=== PATIENT | male | born 1965 | race Caucasian/White ===

== ENCOUNTER 2017-01-09 13:16 | Observation (INO) | payer OTHER ==
[~2017-01-09] VITALS: Ht 182.9 cm; Wt 150.0 kg
[~2017-01-09 13:16] MED LIST: CITA20 PO; FISH1000 PO; GEMF600T PO; HCTZ50TA OR; LURA20TA PO; METO50CR OR; MVI PO; OMEP20TA OR; SYNT25TA PO; [UNRECOGNIZED DRUG - CODE] OR; [UNRECOGNIZED DRUG - CODE] SL
[2017-01-09 13:19] VITALS: BP 183/102; PULSE 83; RESP 18; TEMP 98.2; O2SAT 96
[2017-01-09 13:25] VITALS: O2SAT 95
[2017-01-09 13:29] VITALS: BP 146/96; PULSE 79
[2017-01-09] MEDS ORDERED: SODIUM CHLORIDE 0.9% FLUSH 5 ML FLUSH IVF PRN ×2 (13:30→16:00)
[2017-01-09] MEDS ORDERED: ASPIRIN 81 MG CHEW TAB PO ONE (13:30)
--- NOTE | 2017-01-09 13:34 | PD ---
HPI Chief Complaint: Chest Pain Time Seen by Provider: 13:24 Travel History International Travel<30 days: No Contact w/Intl Traveler<30days: No Traveled to known affect area: No History of Present Illness HPI This is a 51-year-old gentleman with history of hypertriglyceridemia, who presents with complaints of 4 episodes of left sided chest tightness and pain. The patient states that he was getting ready to go out to lunch with his daughter when he started experiencing a squeezing tight sensation in his left side of his chest. He reports no previous history of such pain. He states that it was so severe that he called his is in the medical field told him that he needs to be seen at the hospital as this may be cardiac related. He denies any nausea or diaphoresis with the pain. He reports it as a 7-8 on the pain scale. There was no radiation to his jaw or shoulder. There is no shortness of breath associated with the discomfort. The patient has a history of occasional pipe use. He denies any hypertension or diabetes history. There are no other complaints time my examination. PFSH Past Medical History Blood Disorders: No Depression: Yes Cancer: No Cardiovascular Problems: Yes High Cholesterol: Yes Diminished Hearing: No Endocrine: Yes Gastrointestinal Disorders: No GERD: Yes Genitourinary: No Hypertension: Yes Immune Disorder: No Implanted Vascular Access Dvce: Yes Musculoskeletal: Yes (L-LEG RECONSTRUCTED) Neurologic: No Psychiatric: No Respiratory: No Thyroid Disease: Yes (HYPO) Past Surgical History Body Medical Devices: L-LEG HARDWARE Other Surgery: Yes (HERNIA PATCH) Social History Alcohol Use: No Tobacco Use: Yes Substance Use: No Allergies-Medications (Allergen,Severity, Reaction): Coded Allergies: No Known Allergies (Verified , 09/27/15) Reported Meds & Prescriptions Reported Meds & Active Scripts Active Reported Metoprolol Tartrate 25 Mg Tab 25 Mg PO BID Fish Oil 1000 mg ([place]-3 Fatty Acids) 1 Cap Cap 1,000 Mg PO DAILY Aspirin Adult Low Strength (Aspirin) 81 Mg Tabdr 81 Mg PO DAILY Multi Vitamin (Multiple Vitamin) 1 Tab Tab 1 Tab PO DAILY Triamterene-Hydrochlorothiazide 37.5-25 Mg Tab 1 Tab PO DAILY Gemfibrozil 600 Mg Tab 600 Mg PO DAILY Take 30 minutes prior to breakfast and dinner. Synthroid (Levothyroxine Sodium) 75 Mcg Tab 75 Mcg PO DAILY Omeprazole 20 Mg Tab 20 Mg PO DAILY Review of Systems Except as stated in HPI: all other systems reviewed are Neg General / Constitutional: No: Fever, Chills HENT: No: Headaches, Lightheadedness Cardiovascular: Positive: Chest Pain or Discomfort, No: Palpitations, Irregular Rhythm Respiratory: No: Cough, Shortness of Breath Gastrointestinal: No: Nausea, Vomiting Musculoskeletal: No: Weakness, Pain Neurologic: No: Weakness, Dizziness, Headache Physical Exam Narrative GENERAL: Well-nourished, well-developed patient. SKIN: Warm and dry. HEAD: Normocephalic/atraumatic. EYES: No scleral icterus. No injection or drainage. NECK: Supple, trachea midline. CARDIOVASCULAR: Regular rate and rhythm without murmurs, gallops, or rubs. RESPIRATORY: Breath sounds equal bilaterally. No accessory muscle use. GASTROINTESTINAL: Abdomen soft, obese, non-tender, nondistended. MUSCULOSKELETAL: No cyanosis, or edema. NEUROLOGICAL: Awake and alert. Cranial nerves II through XII intact. Motor grossly within normal limits. Five out of 5 muscle strength in all muscle groups. Normal speech. Data Data Last Documented VS Vital Signs Date Time Temp Pulse Resp B/P Pulse Ox O2 Delivery O2 Flow Rate FiO2 01/09/17 13:29 79 146/96 01/09/17 13:25 95 Room Air 01/09/17 13:25 17 01/09/17 13:19 98.2 Orders Electrocardiogram (01/09/17 13:24) Basic Metabolic Panel (Bmp) (01/09/17 13:24) Ckmb (Isoenzyme) Profile (01/09/17 13:24) Complete Blood Count With Diff (01/09/17 13:24) Magnesium (Mg) (01/09/17 13:24) Prothrombin Time / Inr (Pt) (01/09/17 13:24) Act Partial Throm Time (Ptt) (01/09/17 13:24) Troponin I (01/09/17 13:24) Chest, Single Ap (01/09/17 13:24) Ecg Monitoring (01/09/17 13:24) Bilateral Bp Monitoring (01/09/17 13:24) Iv Access Insert/Monitor (01/09/17 13:24) Oximetry (01/09/17 13:24) Oxygen Administration (01/09/17 13:24) Aspirin Chew (Aspirin Chew) (01/09/17 13:30) Sodium Chloride 0.9% Flush (Ns Flush) (01/09/17 13:30) CKMB (01/09/17 13:30) CKMB% (01/09/17 13:30) Place In Observation (01/09/17 15:54) Activity Bed Rest With Brp (01/09/17 15:54) Vital Signs (Adult) Q4H (01/09/17 15:54) Cardiac Rhythm .As Directed (01/09/17 15:54) ^ Notify Dr: Other .PRN (01/09/17:54) ^ Notify Dr. Parameters (01/09/17:54) Resp Oxygen Rich C Titrat 1-4 L (01/09/17:54) Resp Pulse Oximetry (01/09/17 15:54) Diet Heart Healthy (01/09/17 Dinner) ^ Saline Lock (01/09/17 15:54) Ckmb (Isoenzyme) Profile (01/09/17 16:30) Ckmb (Isoenzyme) Profile (01/09/17 19:30) Troponin I (01/09/17 16:30) Troponin I (01/09/17 19:30) Electrocardiogram (01/09/17 16:30) Electrocardiogram (01/09/17 19:30) ^ Obtain (01/09/17 15:54) Sodium Chloride 0.9% Flush (Ns Flush) (01/09/17 16:00) Sodium Chloride 0.9% Flush (Ns Flush) (01/09/17 21:00) Acetaminophen (Tylenol) (01/09/17 16:00) Acetamin-Hydrocod 325-7.5 Mg ([place] 7.5 (01/09/17 16:00) Ondansetron Inj (Zofran Inj) (01/09/17 16:00) Pantoprazole (Protonix) (01/09/17 16:00) Aspirin (Aspirin) (01/10/17 09:00) Alprazolam (Xanax) (01/09/17 16:00) Vte Prophylaxis Not Indicated (01/09/17 15:54) Clonidine (Catapres) (01/09/17 16:00) Npo After Midnight W/ Po Meds (01/10/17 Breakfast) Myocardial Perf Pharm Sp W/Ef (01/09/17 ) Gemfibrozil (Lopid) (01/10/17 09:00) Levothyroxine (Synthroid) (01/10/17 09:00) Metoprolol Tartrate (Lopressor) (01/09/17 21:00) Multivitamin (Theragran) (01/10/17 09:00) Pantoprazole (Protonix) (01/10/17 09:00) Triamterene-Hctz 37.5-25 Mg (Maxzide 37. (01/10/17 09:00) (Nf) [place]-3 Fatty Acids (Fish Oil 1000 (01/10/17 09:00) Admit Order (Ed Use Only) (01/09/17 16:11) Labs Laboratory Tests Test 01/09/17 13:30 White Blood Count 8.4 TH/MM3 Red Blood Count 5.60 MIL/MM3 Hemoglobin 16.6 GM/DL Hematocrit 47.7 % Mean Corpuscular Volume 85.2 FL Mean Corpuscular Hemoglobin 29.7 PG Mean Corpuscular Hemoglobin 34.9 % Concent Red Cell Distribution Width 14.0 % Platelet Count 305 TH/MM3 Mean Platelet Volume 7.4 FL Neutrophils (%) (Auto) 45.1 % Lymphocytes (%) (Auto) 43.9 % Monocytes (%) (Auto) 7.5 % Eosinophils (%) (Auto) 2.9 % Basophils (%) (Auto) 0.6 % Neutrophils # (Auto) 3.8 TH/MM3 Lymphocytes # (Auto) 3.7 TH/MM3 Monocytes # (Auto) 0.6 TH/MM3 Eosinophils # (Auto) 0.2 TH/MM3 Basophils # (Auto) 0.1 TH/MM3 CBC Comment DIFF FINAL Differential Comment Prothrombin Time 10.5 SEC Prothromb Time International 1.0 RATIO Ratio Activated Partial 27.1 SEC Thromboplast Time Sodium Level 136 MEQ/L Potassium Level 3.9 MEQ/L Chloride Level 99 MEQ/L Carbon Dioxide Level 27.2 MEQ/L Anion Gap 10 MEQ/L Blood Urea Nitrogen 8 MG/DL Creatinine 1.14 MG/DL Estimat Glomerular Filtration 67 ML/MIN Rate Random Glucose 112 MG/DL Calcium Level 9.6 MG/DL Magnesium Level 2.4 MG/DL Total Creatine Kinase 123 U/L Creatine Kinase MB 0.7 NG/ML Troponin I LESS THAN 0.02 NG/ML MDM Medical Decision Making Medical Screen Exam Complete: Yes Emergency Medical Condition: Yes Differential Diagnosis ACS versus pneumonia versus musculoskeletal pain Narrative Course This is a 51-year-old male with a history of hypertriglyceridemia, occasional pipe tobacco use, who presents today with complaints of 4 episodes of left sided chest pain and tightness. The patient is currently pain-free. He states he was concerned because he's never had pain like this before. He has no history of previous heart disease. Diagnosis Primary Impression: Chest pain, atypical Additional Impressions: Tobacco abuse Hypertriglyceridemia Andrew Cowan MD Jan 09, 2017 13:34
[2017-01-09 13:43] LABS: AUTOMATED NEUTROPHIL # 3.8 TH/MM3 (1.8-7.7); BASOPHIL # 0.1 TH/MM3 (0-0.2); BASOPHIL % 0.6 % (0.0-2.0); EOSINOPHIL # 0.2 TH/MM3 (0-0.4); EOSINOPHIL % 2.9 % (0.0-4.0); HEMATOCRIT 47.7 % (39.0-51.0); HEMO FLAGS DIFF FINAL; LYMPH % 43.9 % (9.0-44.0); LYMPHOCYTE # 3.7 TH/MM3 (1.0-4.8); MEAN CELL VOLUME 85.2 FL (80.0-100.0); MEAN CORPUSCULAR HEMOGLOBIN 29.7 PG (27.0-34.0); MEAN CORPUSCULAR HGB CONC 34.9 % (32.0-36.0); MONO % 7.5 % (0.0-8.0); NEUT % 45.1 % (16.0-70.0); PLATELET COUNT 305 TH/MM3 (150-450); WHITE BLOOD COUNT 8.4 TH/MM3 (4.0-11.0)
[2017-01-09 13:53] LABS: APTT (PATIENT) 27.1 SEC (24.3-30.1); PROTHROMBIN TIME - PATIENT 10.5 SEC (9.8-11.6)
[2017-01-09 14:06] LABS: ANION GAP 10 MEQ/L (5-15); BICARBONATE 27.2 MEQ/L (21.0-32.0); CHLORIDE 99 MEQ/L (98-107); CREATINE KINASE 123 U/L (39-308); GLOMERULAR FILTRATION RATE 67 ML/MIN (>89); MAGNESIUM 2.4 MG/DL (1.5-2.5); SODIUM (NA) 136 MEQ/L (136-145)
[2017-01-09 14:07] LABS: BLOOD UREA NITROGEN 8 MG/DL (7-18)
[2017-01-09 14:08] LABS: POTASSIUM 3.9 MEQ/L (3.5-5.1)
--- NOTE | 2017-01-09 14:12 | RADRPT ---
EXAM DATE/TIME: 01/09/2017 13:39 [facility] COMPARISON: CHEST SINGLE AP, September 27, 2015, 0:51. INDICATIONS : Patient states he had chest pain earlier this afternoon. MEDICAL HISTORY : Cardiovascular disease. Hypertension. Gastroesophageal reflux SURGICAL HISTORY : Left leg reconstruction Plate on nose ENCOUNTER: Initial ACUITY: 1 day PAIN SCORE: 0/10 LOCATION: chest FINDINGS: A single view of the chest demonstrates the lungs to be symmetrically aerated without evidence of mas s, infiltrate or effusion. The cardiomediastinal contours are unremarkable. Osseous structures are intact. CONCLUSION: No evidence of acute cardiopulmonary disease. Gary Perera MD on January 09, 2017 at 14:10 Board Certified Radiologist. This report was verified electronically.
[2017-01-09 14:20] LABS: CKMB 0.7 NG/ML (0.5-3.6)
[2017-01-09] MEDS ORDERED: ASPI1TAB91 PO (14:32)
[2017-01-09] MEDS ORDERED: GEMF600T PO (14:32)
[2017-01-09] MEDS ORDERED: OMEG100037 PO (14:32)
[2017-01-09] MEDS ORDERED: LEVO.075 PO (14:32)
[2017-01-09] MEDS ORDERED: OMEP20TA PO (14:32)
[2017-01-09] MEDS ORDERED: MULT-135 PO (14:32)
[2017-01-09] MEDS ORDERED: TRIA37.5 PO (14:32)
[2017-01-09] MEDS ORDERED: METO50TA PO (14:32)
[2017-01-09] MEDS ORDERED: METO25TA3 PO (14:34)
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
[2017-01-09] MEDS ORDERED: PANTOPRAZOLE SOD 40 MG DELAYED RELEASE TAB PO SCH (16:00)
[2017-01-09] MEDS ORDERED: ACETAMINOPHEN 500 MG CPLT PO PRN (16:00)
[2017-01-09] MEDS ORDERED: ACETAMINOPHEN/HYDROcodone 325 MG/7.5 MG TAB PO PRN (16:00)
[2017-01-09] MEDS ORDERED: cloNIDine HCL 0.1 MG TAB PO PRN (16:00)
[2017-01-09] MEDS ORDERED: ONDANSETRON HCL 4 MG/2 ML VIAL IV PRN (16:00)
[2017-01-09] MEDS ORDERED: ALPRAZolam 0.25 MG TAB PO PRN (16:00)
[2017-01-09 16:10] VITALS: BP 133/70; PULSE 80; RESP 18
--- NOTE | 2017-01-09 16:11 | HHI.DCPOC ---
Discharge Care Plan Diagnosis: (1) Chest pain, atypical (2) Hypertension (3) Hypertriglyceridemia (4) Hypothyroidism (5) Tobacco abuse (6) Obesity Goals to Promote Your Health * To prevent worsening of your condition and complications * To maintain your health at the optimal level Directions to Meet Your Goals Take your medications as prescribed Follow your dietary instruction Follow activity as directed Keep your appointments as scheduled Take your immunizations and boosters as scheduled If your symptoms worsen call your PCP, if no PCP go to Urgent Care Center or Emergency Room Smoking is Dangerous to Your Health. Avoid second hand smoke Call the 24-hour hour crisis hotline for domestic abuse at Corey Redmond Jan 09, 2017 16:11
[2017-01-09 17:56] LABS: CREATINE KINASE 108 U/L (39-308)
[2017-01-09 18:09] LABS: CKMB LESS THAN 0.5 NG/ML (0.5-3.6)
[2017-01-09 18:20] VITALS: BP 124/76; PULSE 80; RESP 18
[2017-01-09 20:34] VITALS: BP 122/80; PULSE 84; RESP 18
[2017-01-09 21:32] LABS: CREATINE KINASE 119 U/L (39-308)
[2017-01-09 21:44] LABS: CKMB LESS THAN 0.5 NG/ML (0.5-3.6)
[2017-01-09] MEDS: SODIUM CHLORIDE 0.9% FLUSH 5 ML FLUSH IVF SCH (22:33)
[2017-01-09] MEDS: METOPROLOL TARTRATE 25 MG TAB PO SCH (22:35)
[2017-01-10 02:00] VITALS: BP 121/76; PULSE 85; RESP 18; O2SAT 94
[2017-01-10 05:41] VITALS: BP 113/73; PULSE 82; RESP 20; O2SAT 96
[2017-01-10] MEDS ORDERED: LEVOTHYROXINE SODIUM 75 MCG TAB PO SCH (06:00)
[2017-01-10 07:30] VITALS: BP 116/79; PULSE 78; RESP 16; RESP 17; TEMP 98; O2SAT 99
[2017-01-10] MEDS: SODIUM CHLORIDE 0.9% FLUSH 5 ML FLUSH IVF SCH (08:30)
[2017-01-10] MEDS: METOPROLOL TARTRATE 25 MG TAB PO SCH (08:40)
[2017-01-10] MEDS ORDERED: REGADENOSON INJ 0.4 MG/5 ML SYR ONE (08:48)
[2017-01-10] MEDS ORDERED: PANTOPRAZOLE SOD 20 MG DELAYED RELEASE TAB PO SCH (09:00)
[2017-01-10] MEDS ORDERED: TRIAMTERENE/HCTZ 37.5 MG/25 MG TAB PO SCH (09:00)
[2017-01-10] MEDS ORDERED: GEMFIBROZIL 600 MG TAB PO SCH (09:00)
[2017-01-10] MEDS ORDERED: MULTIVITAMIN TAB PO SCH (09:00)
[2017-01-10] MEDS ORDERED: ASPIRIN 325 MG TAB PO SCH (09:00)
[2017-01-10] MEDS ORDERED: NON-FORMULARY DRUG (Omega-3 Fatty Acids (Fish Oil 1000 mg) 1,000 MG) PO SCH (09:00)
[2017-01-10 09:50] VITALS: BP 100/68; PULSE 84; RESP 17; TEMP 97.8; O2SAT 99
--- NOTE | 2017-01-10 10:14 | RADRPT ---
EXAM DATE/TIME: 01/09/2017 16:14 [facility] COMPARISON: No previous studies available for comparison. INDICATIONS : Angina. DOSE: 32.4 mCi Tc99m Myoview at stress. 32.1 mCi Tc99m Myoview at rest. 0.4 mg Lexiscan STRESS SYMPTOMS: Heart racing and stomach cramps. EJECTION FRACTION: 54% MEDICAL HISTORY : Hypercholesterolemia. Hypertension. Gastroesophageal reflux disease. SURGICAL HISTORY : Hernia patch ENCOUNTER: Initial ACUITY: 2 days PAIN SCALE: 2/10 LOCATION: chest TECHNIQUE: The patient underwent pharmacologic stress with infusion of prescribed dose. Continuous ECG tracing was monitored during stress. Gated SPECT imaging was performed after stress and conventional SPECT i maging was performed at rest. The examination was performed on a SPECT/CT scanner, both attenuation and non-corrected datasets were reviewed. FINDINGS: DISTRIBUTION: The maximum perfused segment at stress is in the lateral wall. PERFUSION STUDY: The pattern of perfusion at stress is within normal limits. GATED STUDY: There is intact wall motion and thickening without hypokinetic or dyskinetic segments. CONCLUSION: 1. No significant reversibility to suggest ischemia. 2. Normal wall motion with ejection fraction 54%. RISK CATEGORY: Low (<1% Annual Mortality Rate) Jamie Baxter MD on January 10, 2017 at 10:09 Board Certified Radiologist. This report was verified electronically.
--- NOTE | 2017-01-10 11:31 | TR ---
Date Performed: 01/10/2017 Time Performed: 08:34:43 DOCTOR: Lucas Suarez DRUG LIST: CLINICAL HISTORY: REASON FOR TEST: Angina REASON FOR ENDING: OBSERVATION: CONCLUSION: Lexiscan stress test was performed under standard four minute protocol. Radionucl[place] e was injected one minute prior to ending the test. No electrocardiographic abormalities were present to suggest ischemia. Nuclear imaging and interpretation are pending. COMMENTS:
[2017-01-10 11:40] VITALS: BP 110/67; TEMP 97.8
--- NOTE | 2017-01-10 14:41 | EKG ---
Date Performed: 01/09/2017 Time Performed: 20:01:37 PTAGE: 51 years EKG: Sinus rhythm NORMAL ECG PREVIOUS TRACING : 01/09/2017 18.02 Since previous tracing, no significant change noted DOCTOR: Lucas Suarez Interpretating Date/Time 01/10/2017 14:40:14
--- NOTE | 2017-01-10 14:42 | EKG ---
Date Performed: 01/09/2017 Time Performed: 18:02:02 PTAGE: 51 years EKG: Sinus rhythm NORMAL ECG PREVIOUS TRACING : 01/09/2017 13.19 Since previous tracing, no significant change noted DOCTOR: Lucas Suarez Interpretating Date/Time 01/10/2017 14:41:13
--- NOTE | 2017-01-10 14:45 | EKG ---
Date Performed: 01/09/2017 Time Performed: 13:19:47 PTAGE: 51 years EKG: Sinus rhythm NORMAL ECG PREVIOUS TRACING : 09/27/2015 00.12 Since previous tracing, no significant change noted DOCTOR: Lucas Suarez Interpretating Date/Time 01/10/2017 14:43:57
== END 2017-01-10 11:40 | disposition home or self-care (01) ==
LOC: NEPC 13:16 → NEDA 16:13 → NEDH 19:29
PROVIDERS: ADMIT Internal Medicine Cardiovascular Disease; ATTEND Internal Medicine Cardiovascular Disease
DX: R07.89 Other chest pain (principal); I10 Essential (primary) hypertension; E03.9 Hypothyroidism, unspecified; E66.9 Obesity, unspecified; F17.210 Nicotine dependence, cigarettes, uncomplicated; F12.90 Cannabis use, unspecified, uncomplicated; E78.00 Pure hypercholesterolemia, unspecified; K21.9 Gastro-esophageal reflux disease without esophagitis; F32.9 Major depressive disorder, single episode, unspecified; Z79.82 Long term (current) use of aspirin; E78.1 Pure hyperglyceridemia; Z68.41 Body mass index [BMI] 40.0-44.9, adult
CPT/HCPCS: 71010; 78452; 80048; 82550; 82552; 83735; 84484; 85025; 85610; 85730; 93005; 93017; 99285; A9502; G0378; J2785

== ENCOUNTER 2017-06-15 06:51 | Observation (INO) | payer OTHER ==
[~2017-06-15] VITALS: Ht 182.9 cm; Wt 137.5 kg
[~2017-06-15 06:51] MED LIST changes: +ASPI1TAB91 PO; -CITA20 PO; -FISH1000 PO; -HCTZ50TA OR; +LEVO.075 PO; -LURA20TA PO; +METO25TA3 PO; -METO50CR OR; +MULT-135 PO; -MVI PO; +OMEG100037 PO; -OMEP20TA OR; +OMEP20TA PO; -SYNT25TA PO; +TRIA37.5 PO; -[UNRECOGNIZED DRUG - CODE] OR; -[UNRECOGNIZED DRUG - CODE] SL
[2017-06-15 06:54] VITALS: BP 139/87; PULSE 97; RESP 18; TEMP 98.5; O2SAT 95
[2017-06-15 07:28] VITALS: BP 135/100; PULSE 75; RESP 16; O2SAT 94
[2017-06-15 07:35] VITALS: BP 112/58; PULSE 78; RESP 18; O2SAT 98
--- NOTE | 2017-06-15 07:38 | PD ---
HPI Chief Complaint: Abdominal Pain Time Seen by Provider: 07:23 Travel History International Travel<30 days: No Contact w/Intl Traveler<30days: No Traveled to known affect area: No History of Present Illness HPI This is a 51-year-old male with a history of hypertension, hyperlipidemia, who presents today with complaints of abdominal pain 3 days. Patient reports right sided. There is no radiation. He reports it as a 6-7 out of 10 on the pain scale. He denies any nausea or vomiting. He denies any diarrhea. He states the pain is unrelenting and will go away. There is no relieving factors. He has had no previous abdominal surgery. He has had previous ileus in his intestines. There is no urinary symptoms PFSH Past Medical History Hx Anticoagulant Therapy: No Blood Disorders: No Bipolar Disorder: Yes Depression: Yes Cancer: No Cardiovascular Problems: Yes (HTN) High Cholesterol: Yes Chemotherapy: No Cerebrovascular Accident: No Diabetes: No Diminished Hearing: No Endocrine: Yes Gastrointestinal Disorders: Yes GERD: Yes Genitourinary: No Hypertension: Yes Immune Disorder: No Implanted Vascular Access Dvce: Yes Musculoskeletal: Yes (L-LEG RECONSTRUCTED) Neurologic: No Psychiatric: No Respiratory: No Thyroid Disease: Yes (HYPO) Tetanus Vaccination: < 5 Years Past Surgical History Body Medical Devices: L-LEG HARDWARE Other Surgery: Yes (HERNIA PATCH) Social History Alcohol Use: Yes Tobacco Use: Yes Allergies-Medications (Allergen,Severity, Reaction): Coded Allergies: No Known Allergies (Verified , 09/27/15) Reported Meds & Prescriptions Reported Meds & Active Scripts Active Reported Fish Oil (Auberry-3 Fatty Acids) 1,000 Mg Cap Multi Vitamin Daily (Multiple Vitamin) 1 Tab Tab Synthroid (Levothyroxine Sodium) 75 Mcg Tab 75 Mcg PO DAILY Triamterene-Hydrochlorothiazide 37.5-25 Mg Cap 1 Cap PO DAILY Gemfibrozil 600 Mg Tab 600 Mg PO BIDAC Take 30 minutes prior to breakfast and dinner. Metoprolol Tartrate 25 Mg Tab 25 Mg PO BID Omeprazole 20 Mg Tab 20 Mg PO DAILY Latuda (Lurasidone) 20 Mg Tab 20 Mg PO DAILY Citalopram (Citalopram Hydrobromide) 20 Mg Tab 20 Mg PO DAILY Bupropion HCl 100 Mg Tab 150 Mg PO BID Review of Systems General / Constitutional: No: Fever, Chills HENT: Positive: Vertigo, No: Headaches, Lightheadedness Cardiovascular: No: Chest Pain or Discomfort, Palpitations Respiratory: No: Cough, Shortness of Breath Gastrointestinal: Positive: Abdominal Pain (right sided), Loss of Appetite, No : Nausea, Vomiting, Diarrhea, Constipation Genitourinary: No: Frequency, Dysuria Musculoskeletal: No: Weakness, Pain Neurologic: No: Weakness, Headache Physical Exam Narrative GENERAL: Well-nourished, well-developed patient. SKIN: Focused skin assessment warm/dry. HEAD: Normocephalic/atraumatic. EYES: No scleral icterus. No injection or drainage. NECK: Supple, trachea midline. CARDIOVASCULAR: Regular rate and rhythm without murmurs, gallops, or rubs. RESPIRATORY: Breath sounds equal bilaterally. No accessory muscle use. GASTROINTESTINAL: Abdomen soft, nondistended. There is tenderness to palpation in his right lower quadrant. There is no rebound. No guarding. MUSCULOSKELETAL: No cyanosis, or edema. NEUROLOGICAL: Awake and alert. Cranial nerves II through XII intact. Motor grossly within normal limits. Five out of 5 muscle strength in all muscle groups. Normal speech. PSYCHIATRIC: No delusional thought processes. No hallucinations. Data Data Last Documented VS Vital Signs Date Time Temp Pulse Resp B/P Pulse Ox O2 Delivery O2 Flow Rate FiO2 06/15/17 07:35 78 18 112/58 98 Room Air 06/15/17 06:54 98.5 Orders Complete Blood Count With Diff (06/15/17 07:39) Comprehensive Metabolic Panel (06/15/17 07:39) Lipase (06/15/17 07:39) Urinalysis - C+S If Indicated (06/15/17 07:39) Ct Abd/Pel W Iv Contrast(Rout) (06/15/17 07:39) Iv Access Insert/Monitor (06/15/17 07:39) Ecg Monitoring (06/15/17 07:39) Oximetry (06/15/17 07:39) Ondansetron Inj (Zofran Inj) (06/15/17 07:45) Sodium Chlor 0.9% 1000 Ml Inj (Ns 1000 M (06/15/17 07:39) Sodium Chloride 0.9% Flush (Ns Flush) (06/15/17 07:45) Hydromorphone Pf Inj (Dilaudid Pf Inj) (06/15/17 07:45) Oral Contrast - Adult (06/15/17 07:43) Diatrizoate Liq ( Gastromookie Liq) (06/15/17 08:00) Iohexol 350 Inj (Omnipaque 350 Inj) (06/15/17 10:17) Piperacil-Tazo 4.5 Gm Premix (Zosyn 4.5 (06/15/17 10:45) Labs Laboratory Tests Test 06/15/17 06/15/17 07:40 10:00 White Blood Count 17.1 TH/MM3 Red Blood Count 5.51 MIL/MM3 Hemoglobin 16.5 GM/DL Hematocrit 47.5 % Mean Corpuscular Volume 86.2 FL Mean Corpuscular Hemoglobin 29.9 PG Mean Corpuscular Hemoglobin 34.7 % Concent Red Cell Distribution Width 13.6 % Platelet Count 252 TH/MM3 Mean Platelet Volume 8.1 FL Neutrophils (%) (Auto) 74.5 % Lymphocytes (%) (Auto) 18.0 % Monocytes (%) (Auto) 6.6 % Eosinophils (%) (Auto) 0.3 % Basophils (%) (Auto) 0.6 % Neutrophils # (Auto) 12.8 TH/MM3 Lymphocytes # (Auto) 3.1 TH/MM3 Monocytes # (Auto) 1.1 TH/MM3 Eosinophils # (Auto) 0.1 TH/MM3 Basophils # (Auto) 0.1 TH/MM3 CBC Comment DIFF FINAL Differential Comment Sodium Level 132 MEQ/L Potassium Level 3.6 MEQ/L Chloride Level 98 MEQ/L Carbon Dioxide Level 25.0 MEQ/L Anion Gap 9 MEQ/L Blood Urea Nitrogen 8 MG/DL Creatinine 1.17 MG/DL Estimat Glomerular Filtration 65 ML/MIN Rate Random Glucose 123 MG/DL Calcium Level 9.4 MG/DL Total Bilirubin 1.4 MG/DL Aspartate Amino Transf 14 U/L (AST/SGOT) Alanine Aminotransferase 22 U/L (ALT/SGPT) Alkaline Phosphatase 101 U/L Total Protein 8.1 GM/DL Albumin 3.7 GM/DL Lipase 93 U/L Urine Color YELLOW Urine Turbidity CLEAR Urine pH 6.0 Urine Specific [place] 1.013 Urine Protein TRACE mg/dL Urine Glucose (UA) NEG mg/dL Urine Ketones NEG mg/dL Urine Occult Blood NEG Urine Nitrite NEG Urine Bilirubin NEG Urine Urobilinogen LESS THAN 2.0 MG/DL Urine Leukocyte Esterase NEG Urine RBC LESS THAN 1 /hpf Urine WBC LESS THAN 1 /hpf Urine Squamous Epithelial <1 /hpf Cells Microscopic Urinalysis Comment CULT NOT INDICATED MDM Medical Decision Making Medical Screen Exam Complete: Yes Emergency Medical Condition: Yes Differential Diagnosis Appendicitis versus cholecystitis versus pancreatitis versus ileus Narrative Course 51-year-old male presents with complaints of right sided abdominal pain 3 days. Patient reports progressively gotten worse. White count 17,000. Patient 's CT scan shows acute appendicitis. There is no evidence of rupture or abscess. He's been started on 4.5 g of Zosyn. There is a call out to Dr. Dominic Kline, general surgeon on-call. He'll be admitted to Dr. Venegas for surgical removal of his appendix. Diagnosis Primary Impression: Acute appendicitis Admitting Information Admitting Physician Requests: Admit Andrew Cowan MD Jun 15, 2017 07:38
[2017-06-15] MEDS ORDERED: SODIUM CHLOR 0.9% 1000 ML INJ 1,000 ML IV SCH (07:39)
[2017-06-15] MEDS ORDERED: HYDROmorphone HCL PF 1 MG/ML VIAL IVS ONE (07:45)
[2017-06-15] MEDS ORDERED: SODIUM CHLORIDE 0.9% FLUSH 10 ML FLUSH IV FLUSH PRN ×2 (07:45→15:30)
[2017-06-15] MEDS ORDERED: ONDANSETRON HCL 4 MG/2 ML VIAL IVP ONE (07:45)
[2017-06-15] MEDS ORDERED: GEMF600T PO (07:47)
[2017-06-15] MEDS ORDERED: TRIA37.53 PO (07:47)
[2017-06-15] MEDS ORDERED: HYDR25TA5 PO (07:47)
[2017-06-15] MEDS ORDERED: MULT1TAB46 (07:47)
[2017-06-15] MEDS ORDERED: OMEP20TA PO (07:47)
[2017-06-15] MEDS ORDERED: LURA20TA PO (07:47)
[2017-06-15] MEDS ORDERED: FISH1000 (07:47)
[2017-06-15] MEDS ORDERED: BUPR100T4 PO (07:47)
[2017-06-15] MEDS ORDERED: METO25TA3 PO (07:47)
[2017-06-15] MEDS ORDERED: LEVO.075 PO (07:47)
[2017-06-15] MEDS ORDERED: CITA20TA4 PO (07:47)
[2017-06-15] MEDS ORDERED: DIATRIZOATE MEGLUM/DIATRIZOATE SOD 9 ML CUP ONE (08:00)
[2017-06-15 08:27] LABS: AUTOMATED NEUTROPHIL # 12.8 TH/MM3 (1.8-7.7); BASOPHIL # 0.1 TH/MM3 (0-0.2); BASOPHIL % 0.6 % (0.0-2.0); EOSINOPHIL # 0.1 TH/MM3 (0-0.4); EOSINOPHIL % 0.3 % (0.0-4.0); HEMATOCRIT 47.5 % (39.0-51.0); HEMO FLAGS DIFF FINAL; LYMPHOCYTE # 3.1 TH/MM3 (1.0-4.8); MEAN CELL VOLUME 86.2 FL (80.0-100.0); MEAN CORPUSCULAR HEMOGLOBIN 29.9 PG (27.0-34.0); MEAN CORPUSCULAR HGB CONC 34.7 % (32.0-36.0); MONO % 6.6 % (0.0-8.0); NEUT % 74.5 % (16.0-70.0); PLATELET COUNT 252 TH/MM3 (150-450); RED BLOOD COUNT 5.51 MIL/MM3 (4.50-5.90); RED CELL DISTRIBUTION WIDTH 13.6 % (11.6-17.2); WHITE BLOOD COUNT 17.1 TH/MM3 (4.0-11.0)
[2017-06-15 08:44] LABS: ALT (GPT) 22 U/L (12-78); ANION GAP 9 MEQ/L (5-15); AST (GOT) 14 U/L (15-37); BLOOD UREA NITROGEN 8 MG/DL (7-18); CHLORIDE 98 MEQ/L (98-107); GLOMERULAR FILTRATION RATE 65 ML/MIN (>89); POTASSIUM 3.6 MEQ/L (3.5-5.1); SODIUM (NA) 132 MEQ/L (136-145)
[2017-06-15 08:47] LABS: ALKALINE PHOSPHATASE 101 U/L (45-117); TOTAL BILIRUBIN ADULT 1.4 MG/DL (0.2-1.0)
[2017-06-15] MEDS ORDERED: IOHEXOL 350 MG/ML 10 ML VIAL (for RAD DIAG) IV ONE (10:17)
[2017-06-15 10:19] LABS: BLOOD, URINE NEG (NEG); GLUCOSE,URINE NEG (NEG); KETONE, URINE NEG (NEG); NITRITE,URINE NEG (NEG); SQUAMOUS EPITHELIAL CELL URINE <1 /hpf (0-5); URINE COLOR YELLOW (YELLW/STRAW)
[2017-06-15 10:22] LABS: COMMENT (UR) CULT NOT INDICATED; CULTURE IF INDICATED CULT NOT INDICATED
--- NOTE | 2017-06-15 10:43 | RADRPT ---
EXAM DATE/TIME: 06/15/2017 10:13 [facility] COMPARISON: No previous studies available for comparison. INDICATIONS : Right abdomen pain. Elevated white blood cell count of 17,000. IV CONTRAST: 100 cc Omnipaque 350 (iohexol) IV ORAL CONTRAST: Prescribed oral contrast ingested. RADIATION DOSE: 20.19 CTDIvol (mGy) MEDICAL HISTORY : Hypertension. Gastroesophageal reflux disease. SURGICAL HISTORY : None. ENCOUNTER: Initial ACUITY: 3 days PAIN SCALE: 4/10 LOCATION: Right lower quadrant TECHNIQUE: Volumetric scanning of the abdomen and pelvis was performed. Using automated exposure control and ad justment of the mA and/or kV according to patient size, radiation dose was kept as low as reasonably achievable to obtain optimal diagnostic quality images. DICOM format image data is available electro nically for review and comparison. FINDINGS: LOWER LUNGS: The visualized lower lungs are clear. LIVER: Homogeneous density without lesion. There is no dilation of the biliary tree. No calcified gallston es. There is mild hepatic steatosis. SPLEEN: Normal size without lesion. PANCREAS: Within normal limits. KIDNEYS: Normal in size and shape. There is no solid mass, stone or hydronephrosis. A simple cyst is noted in the right kidney. ADRENAL GLANDS: Within normal limits. VASCULAR: There is no aortic aneurysm. BOWEL/MESENTERY: There is inflammatory change in the right lower quadrant with mild wall thickening involving the base of the cecum. There is an small abnormal tubular structure present with small amount of gas in the t ubular structure and surrounding inflammatory change. There is no appendicolith. There is no free air or fluid. ABDOMINAL WALL: Status post abdominal hernia repair with mesh in place. There is no recurrent hernia. RETROPERITONEUM: There is no lymphadenopathy. BLADDER: No wall thickening or mass. REPRODUCTIVE: Within normal limits. INGUINAL: There is no lymphadenopathy or hernia. MUSCULOSKELETAL: Within normal limits for patient age. CONCLUSION: 1. Acute appendicitis. 2. Mild hepatic steatosis. 3. Post surgical changes status post abdominal hernia repair. These findings were called to Dr. Cowan in the emergency room at 1038 hrs. Sanjay Marroquin MD on June 15, 2017 at 10:36 Board Certified Radiologist. This report was verified electronically.
[2017-06-15] MEDS ORDERED: PIPERACIL-TAZO 4.5 GM PREMIX 100 ML IV ONE (10:45)
[2017-06-15] MEDS ORDERED: LACTATED RINGER'S 1000 ML INJ 1,000 ML IV ONE (12:00)
[2017-06-15] MEDS ORDERED: NEOSTIGMINE 3 MG/3 ML SYR IV ONE (12:00)
[2017-06-15] MEDS ORDERED: ONDANSETRON HCL 4 MG/2 ML VIAL IV PUSH ONE (12:00)
[2017-06-15] MEDS ORDERED: PROPOFOL 200 MG/20 ML AMP IV ONE (12:00)
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
[2017-06-15] MEDS ORDERED: BUPIVACAINE/EPINEPHRINE 0.25% 50 ML VIAL ONE (13:42)
--- NOTE | 2017-06-15 15:26 | PD.OP ---
Operative Report Date of Surgery: Jun 15, 2017 Preoperative Diagnosis: acute appendicitis Postoperative Diagnosis: same complicated Procedure: deidra higuera Anesthesia: general Surgeon: Dominic Kline Billiard Table Mechanic(s): Mani staff, ASSEM[employer] Operation and Findings: severe inflammatory changes in the RLQ, appendix removed in two pieces, two fecaliths removed. 10 telugu drain placed in RLQ. EBL 50 ml. Dominic Kline MD Jun 15, 2017 15:26
[2017-06-15] MEDS ORDERED: MAGNESIUM HYDROXIDE SUSP 30 ML CUP PO PRN (15:30)
[2017-06-15] MEDS ORDERED: ACETAMINOPHEN/HYDROcodone 325 MG/5 MG TAB PO PRN ×2 (15:30)
[2017-06-15] MEDS ORDERED: Post-op Orders (for Pharmacy) MISC XX ONE (15:30)
[2017-06-15] MEDS ORDERED: HYDROmorphone HCL PF 1 MG/ML VIAL IV PRN (15:30)
[2017-06-15] MEDS ORDERED: ONDANSETRON HCL 4 MG/2 ML VIAL IV PRN (15:30)
[2017-06-15] MEDS ORDERED: *RESP: ALBUTEROL 2.5 MG/3 ML NEB (PRN) PERIprocedural Use ONLY NEB ONE (15:31)
[2017-06-15] MEDS ORDERED: MIDAZOLAM HCL 2 MG/2 ML VIAL ONE (15:35)
[2017-06-15] MEDS ORDERED: fentaNYL CITRATE 250 MCG/5 ML AMP ONE (15:36)
[2017-06-15] MEDS ORDERED: PILL SPLITTER OTHER PRN (15:45)
[2017-06-15] MEDS: KETOROLAC TROMETHAMINE 30 MG/ML (IVP) VIAL IVP PRN ×2 (15:45→21:40)
[2017-06-15] MEDS: LACTATED RINGER'S 1000 ML INJ 1,000 ML IV SCH (16:00)
[2017-06-15] MEDS: ACETAMINOPHEN 1000 MG/100 ML VIAL IV SCH ×2 (16:00→21:42)
[2017-06-15] MEDS ORDERED: DO NOT ADM ANY ANTICOAGULANT DRUGS PRN (16:30)
[2017-06-15] MEDS: metroNIDAZOLE 500 MG INJ 100 ML IV SCH (17:03)
[2017-06-15] MEDS: GEMFIBROZIL 600 MG TAB PO SCH (17:03)
[2017-06-15 17:05] VITALS: BP 88/53; PULSE 93; RESP 16; TEMP 98.3; O2SAT 94
[2017-06-15 17:35] VITALS: BP 110/78
[2017-06-15 20:00] VITALS: BP 108/57; PULSE 96; RESP 20; TEMP 97; O2SAT 94
[2017-06-15] MEDS: SODIUM CHLORIDE 0.9% FLUSH 10 ML FLUSH IV FLUSH SCH (21:00)
[2017-06-15] MEDS: buPROPion HCL 100 MG TAB PO SCH (21:38)
[2017-06-15] MEDS: DOCUSATE SODIUM 100 MG CAP PO SCH (21:38)
[2017-06-15] MEDS: METOPROLOL TARTRATE 25 MG TAB PO SCH (21:38)
[2017-06-16] VITALS: BP 101/58; PULSE 89; RESP 20; TEMP 96.4; O2SAT 91
[2017-06-16] MEDS: metroNIDAZOLE 500 MG INJ 100 ML IV SCH ×2 (01:36→11:07)
[2017-06-16] MEDS: LACTATED RINGER'S 1000 ML INJ 1,000 ML IV SCH ×2 (01:37→11:07)
[2017-06-16] MEDS: KETOROLAC TROMETHAMINE 30 MG/ML (IVP) VIAL IVP PRN ×2 (03:07→12:08)
[2017-06-16] MEDS: ACETAMINOPHEN 1000 MG/100 ML VIAL IV SCH (03:11)
[2017-06-16] MEDS: GEMFIBROZIL 600 MG TAB PO SCH (05:43)
[2017-06-16] MEDS ORDERED: LEVOTHYROXINE SODIUM 75 MCG TAB PO SCH (06:00)
[2017-06-16 07:05] LABS: BICARBONATE 25.8 MEQ/L (21.0-32.0); POTASSIUM 3.7 MEQ/L (3.5-5.1)
[2017-06-16 08:00] VITALS: BP 99/66; PULSE 76; RESP 17; TEMP 96.6; O2SAT 92
[2017-06-16] MEDS: METOPROLOL TARTRATE 25 MG TAB PO SCH (08:49)
[2017-06-16] MEDS: buPROPion HCL 100 MG TAB PO SCH (08:50)
[2017-06-16] MEDS: DOCUSATE SODIUM 100 MG CAP PO SCH (08:50)
[2017-06-16] MEDS ORDERED: PANTOPRAZOLE SOD 40 MG DELAYED RELEASE TAB PO SCH (09:00)
[2017-06-16] MEDS ORDERED: LURASIDONE 40 MG TAB PO SCH (09:00)
[2017-06-16] MEDS: SODIUM CHLORIDE 0.9% FLUSH 10 ML FLUSH IV FLUSH SCH (09:00)
[2017-06-16] MEDS ORDERED: CITALOPRAM HYDROBROMIDE 20 MG TAB PO SCH (09:00)
[2017-06-16] MEDS ORDERED: TRIAMTERENE/HCTZ 37.5 MG/25 MG CAP PO SCH (09:00)
[2017-06-16 09:15] VITALS: O2SAT 93
[2017-06-16 12:00] VITALS: BP 98/52; PULSE 75; RESP 16; TEMP 97; O2SAT 93
--- NOTE | 2017-06-16 12:43 | HHI.PR ---
Subjective Subjective Notes feels fine, wants to go home Objective Vitals/I&O Vital Signs Date Time Temp Pulse Resp B/P Pulse Ox O2 Delivery O2 Flow Rate FiO2 06/16/17 09:15 93 21 06/16/17 08:00 96.6 76 17 99/66 06/15/17 15:30 Simple Mask 8 Labs Laboratory Tests Test 06/16/17 05:45 Sodium Level 137 Potassium Level 3.7 Chloride Level 104 Carbon Dioxide Level 25.8 Anion Gap 7 Blood Urea Nitrogen 10 Creatinine 1.00 Estimat Glomerular Filtration 78 Rate Random Glucose 126 Calcium Level 9.1 Abdomen: Non-distended, Post-op tenderness, BS normal A/P Assessment and Plan s/p lap appy dc home today with po abx and drain Rojelio Mancera MD Jun 16, 2017 12:43
[2017-06-16] MEDS ORDERED: ENOXAPARIN SODIUM 40 MG/0.4 ML SYRINGE SQ SCH (15:00)
--- NOTE | 2017-06-17 14:18 | MP ---
cc: ANNA KWONG M.D. DATE OF SURGERY: 06/15/2017 PREOPERATIVE DIAGNOSIS Acute appendicitis. POSTOPERATIVE DIAGNOSIS Acute appendicitis. PROCEDURE Laparoscopic appendectomy. SURGEON Dr. Anna Kwong ANESTHESIA General endotracheal. INDICATIONS This is a 51-year-old gentleman with a history and physical exam, laboratory and CT findings all consistent with acute appendicitis. INTRAOPERATIVE FINDINGS Severe inflammatory changes in the right lower quadrant. Appendix densely scarred down in the right lower quadrant, removed in two pieces. Two fecaliths removed. Due to the severity of the inflammation a 10-Bangladeshi drain was placed in the right lower quadrant. ESTIMATED BLOOD LOSS Less than 50 mL. DESCRIPTION OF PROCEDURE IN DETAIL The patient was identified as Driss Cedeno, taken to the operating room and placed in supine position. Sequential compression devices were placed on bilateral lower extremities. Following induction of adequate general endotracheal anesthesia the patient's abdomen was prepped and draped in the usual sterile fashion with Betadine. A timeout procedure was performed. Following completion of the timeout procedure to everyone's satisfaction within the room, local anesthetic was placed at each incision site. Due to the patient's prior mesh placement in the umbilical hernia repair, a site about 10 cm above the umbilicus was made for the initial entry incision. The incision was carried out with a scalpel about 3 cm in length vertical in nature. Dissection continued posteriorly to the level of the midline fascia. This was incised in vertical fashion. Entry into the peritoneal cavity was facilitated with the surgeon's finger. The superior border of the mesh could be palpated within the wound. The [employer] balloon Jamil trocar was placed in the peritoneal cavity and its balloon inflated with CO2 insufflation until a level of 15 mmHg ensued. The patient was placed in a Trendelenburg position, turned to the left. Two lower abdominal 5 mm trocars were placed in the peritoneal cavity under direct laparoscopic view after incision of the skin with a scalpel, one in the infraumbilical midline and the other in the right lower quadrant. Dense inflammatory change in the right lower quadrant were discovered. The terminal ileum, the veil of Treves and the mesentery of the terminal ileum were all densely adherent to the inflamed appendix which was scarred down in the right lower quadrant just inferior to the cecum. With careful meticulous dissection using both blunt dissection, the suction irrigation device and the Harmonic scalpel, the appendix was able to be mobilized from surrounding tissues. In doing so there was a small amount of blood loss from gentle ooze from the inflammatory nature of the surrounding tissues. The appendiceal mesentery was taken down with the Harmonic scalpel. Two fecaliths eroded through the wall of the appendix and were controlled and ultimately removed and the appendix was removed in two pieces. The base of the appendix at the level of the cecum was identified, cleared circumferentially and ligated with a 0 PDS Endoloop. One piece of appendix was amputated distal to this. The second piece of the appendix was again controlled and both pieces along with the two fecaliths were placed into an Endo retriever bag and removed through the upper midline incision site. The right lower quadrant was then copiously irrigated with saline and suctioned out. There was no bleeding. The base of the appendix ligature remained intact. The appendiceal mesentery was hemostatic. Due to the severity of the inflammation a 10-Bangladeshi Marty drain was placed through the right lower quadrant 5 mm trocar into the right lower quadrant and held in position at the level of the skin with a 3-0 nylon drain stitch. The abdomen was then explored further. The liver and gallbladder appeared normal. There were inflammatory adhesions of the small bowel and omentum to the previously placed mesh which was photographed and left alone. The remaining 5 mm trocar was removed under direct visualization. There was no evidence of bleeding from the trocar site. The abdomen was desufflated through the upper midline trocar which was then removed. This fascial incision was closed with interrupted 0 Vicryl [id number] sutures. Port sites were irrigated with saline and skin incisions were approximated with 4-0 Monocryl subcuticular sutures. Dressings were applied with Mastisol and half-inch brown Steri-Strips. A dry dressing was placed around the drain exit site. The patient tolerated the procedure without apparent complication. Sponge, needle and instrument counts were correct at the end of the case. MD ARPAN Watt/SHER /3:21 PM /1:52 PM
== END 2017-06-16 14:50 | disposition home or self-care (01) ==
LOC: NEPC 06:51 → NEDA 12:47 → INTOOBSV 12:47 → N07B 16:20
PROVIDERS: ADMIT Surgery Trauma Surgery; ATTEND Surgery Trauma Surgery
DX: K35.80 Unspecified acute appendicitis (principal); I10 Essential (primary) hypertension; E78.5 Hyperlipidemia, unspecified; F31.9 Bipolar disorder, unspecified; F32.9 Major depressive disorder, single episode, unspecified; E78.00 Pure hypercholesterolemia, unspecified; F17.210 Nicotine dependence, cigarettes, uncomplicated; Z79.899 Other long term (current) drug therapy; E03.9 Hypothyroidism, unspecified
CPT/HCPCS: 00840; 44970; 74177; 76937; 80048; 80053; 81001; 83690; 85025; 88304; 94150; 94640; 96361; 96365; 96367; 96368; 96375; 96376; 99285; G0378; J0131; J0690; J1170; J1885; J2250; J2405; J2543; J2710; J3010; J7030; J7120; J7613; Q9963; Q9967